=== PATIENT | male | born 1955 | race Caucasian/White ===

== ENCOUNTER 2017-07-11 20:46 | Observation (INO) | payer BC ==
[~2017-07-11] VITALS: Ht 188 cm; Wt 129.5 kg
[~2017-07-11 20:46] MED LIST: CLC150 PO; LCTX PO; SSDCR50 TD
[2017-07-11] MEDS ORDERED: RMR15 PO (21:59)
[2017-07-11] MEDS ORDERED: CARV12.5 PO (21:59)
[2017-07-11] MEDS ORDERED: ATOR10TA88 PO (21:59)
[2017-07-11] MEDS ORDERED: ASPI81TA28 PO (22:00)
[2017-07-11] MEDS ORDERED: ALBUT/IPRATROP 3MG/0.5MG NEB 3 ML VIAL INH STA (22:01)
[2017-07-11] MEDS ORDERED: METHYLPREDNISOLONE 125 MG VIAL IV STA (22:06)
--- NOTE | 2017-07-11 22:16 | DIAGNOSTIC IMAGING REPORT ---
CHEST ONE VIEW PORTABLE HISTORY: EVALUATE RESPIRATORY DISTRESS.DYSPNEA COMPARISON: Chest 05/15/2008. FINDINGS: The lungs are clear. Cardiac silhouette is normal in size. No pleural effusions. No pneumothorax. IMPRESSION: No acute process. Electronically signed by: Jamarcus Hanna M.D. 07/11/2017 10:15 PM Dictated Date/Time: 07/11/2017 10:14 PM
[2017-07-11 22:21] LABS: BASO % 0.3 %; BASO ABS # 0.05 K/uL (0-0.2); COMPLETE YES; EOS % 2.8 %; HEMATOCRIT 45.9 % (42-52); IG% 0.3 %; LYMPH % 18.5 %; LYMPH ABS # 2.89 K/uL (1.2-3.4); MEAN CELL VOLUME 96.8 fL (80-100); MEAN CORPUSCULAR HEMOGLOBIN 32.3 pg (25-34); MEAN CORPUSCULAR HGB CONC 33.3 g/dl (32-36); MEAN PLATELET VOLUME 10.7 fL (7.4-10.4); MONO % 8.9 %; NEUT % 69.2 %; PLATELET COUNT 207 K/uL (130-400); RED BLOOD COUNT 4.74 M/uL (4.7-6.1); WHITE BLOOD COUNT 15.61 K/uL (4.8-10.8)
[2017-07-11 22:25] LABS: POINT OF CARE TROPONIN I 0.14 ng/ml (0-0.045)
[2017-07-11 22:45] LABS: BUN/CREATININE RATIO 13.9 (10-20); CALCIUM 8.7 mg/dl (8.5-10.1); CREATININE 1.53 mg/dl (0.60-1.40)
[2017-07-11 22:49] LABS: ALB/GLOB RATIO 0.9 (0.9-2); CKMB/CK RATIO 1.3 (0-3.0)
[2017-07-11] MEDS ORDERED: ASPIRIN 81 MG CHEW PO STA (22:51)
[2017-07-11 23:28] LABS: URINE APPEARANCE CLEAR (CLEAR); URINE BILIRUBIN NEG (NEG); URINE COLOR YELLOW; URINE NITRITE NEG (NEG); URINE SPECIFIC GRAVITY 1.018 (1.000-1.030); UROBILINOGEN NEG (NEG)
[2017-07-11 23:29] LABS: MANUAL MICROSCOPIC REQUIRED? NO; REVIEW REQ? NO
[2017-07-12] MEDS ORDERED: MAGNESIUM HYDROXIDE SUSP 30 ML UDC PO PRN (00:15)
[2017-07-12] MEDS ORDERED: NITROGLYCERIN 0.4 MG SL PER TAB CHARGE SL PRN (00:15)
[2017-07-12] MEDS ORDERED: ACETAMINOPHEN 325 MG TAB PO PRN (00:15)
[2017-07-12] MEDS ORDERED: LEVALBUTEROL/IPRATROPIUM NEB INH PRN (00:15)
[2017-07-12] MEDS ORDERED: ALUMINUM/MAGNESIUM/SIMETH (MAALOX MAX) 30 ML UDC PO PRN (00:15)
[2017-07-12] MEDS ORDERED: ONDANSETRON INJ 2 MG/ML 2 ML VIAL IV PRN (00:15)
[2017-07-12] MEDS ORDERED: IPRATROPIUM BROMIDE NEB SOLN 0.02% 2.5 ML VIAL INH PRN (00:30)
[2017-07-12] MEDS ORDERED: IV FLUIDS COMPLETED PRN (00:30)
[2017-07-12] MEDS ORDERED: LEVALBUTEROL 0.63MG/3 ML NEB INH PRN (00:30)
--- NOTE | 2017-07-12 00:48 | HISTORY & PHYSICAL EXAMINATION ---
DATE OF ADMISSION: 07/12/2017 CHIEF COMPLAINT: Shortness of breath and anxiety. HISTORY OF PRESENT ILLNESS: This is a 62-year-old male with past medical history significant for generalized anxiety disorder, hyperlipidemia, hypertension, presents with cold-like symptoms and shortness of breath and some chest discomfort. The patient says since last 2 or 3 days, he developed some cold-like symptoms having cough with some mild yellowish phlegm and shortness of breath> when he gets shortness of breath he gets anxious and paranoid. Today he also had chest pain, mild to moderate in severity, no radiation, which is resolved now. Currently resting comfortably, hemodynamically stable.Yesterday night, he also had some headache in the back of his head. At that time he had some sweating on head. Currently, no headaches, no blurred vision, no runny nose, has mild sore throat. No difficulty swallowing. No nausea, no vomiting, no abdominal pain. Normal bowel and bladder movements. No blood in the stools, no blood in the urine. Appetite is okay. Denies any shortness of breath or chest pain on exertion. Denies rash or swelling of legs ALLERGIES: DIPHENHYDRAMINE. PAST MEDICAL HISTORY: As mentioned above. PAST SURGICAL HISTORY: Tonsillectomy, adenoidectomy. MEDICATIONS: The patient is on Lipitor 10 mg p.o. daily, Coreg 12.5 mg p.o. b.i.d. mirtazapine 30 mg p.o. at bedtime. FAMILY HISTORY: Significant for father had diabetes, hypertension and neurological disorder. Paternal grandmother has asthma. SOCIAL HISTORY: . No smoking history. No alcohol history. No drug history. REVIEW OF SYMPTOMS: As per HPI. Rest of review of systems negative. PHYSICAL EXAMINATION: GENERAL: The patient is obese, not in distress. VITAL SIGNS: Temperature 36.4, pulse 73, respiratory rate 23, blood pressure 158/92, oxygen 94% on room air. HEENT: No pallor, no icterus. Pupils equal, round, and reactive to light. NECK: No JVD, no neck masses, no carotid bruits. CARDIOVASCULAR: S1, S2 heard, regular rate and rhythm, no murmur, no gallop. RESPIRATORY SYSTEM: Normal AP diameter. No accessory muscle use. No wheezing, no crackles. ABDOMEN: Soft, bowel sounds present. Nontender. No distention. CENTRAL NERVOUS SYSTEM: Cranial nerves are grossly intact. Nonfocal. EXTREMITIES: Trace pedal edema present. No erythema seen. LABORATORIES: Sodium 137, potassium 4, chloride 105, bicarbonate 25, BUN 21, creatinine 1.5, serum glucose 108, calcium 8.7, total bilirubin 0.5, AST 17, ALT 22, alkaline phosphatase 82, total creatinine kinase 223, point of care troponin 0.1. BNP 62, total protein 8. WBC 15.6, hemoglobin 15.3, hematocrit 45.9, platelets 207. Point of care D-dimer 436. Urinalysis unremarkable. Chest x-ray negative study. EKG: Normal sinus rhythm with a rate of 74. No acute ST changes seen. ASSESSMENT AND PLAN: This is a 62-year-old male who presents with shortness of breath and cold-like symptoms. 1. Shortness of breath and cold-like symptoms with leukocytosis present. Chest x-ray unremarkable. Most likely upper respiratory infection. We will place him on p.o. Levaquin. The patient received steroids and DuoNebs in the ERl. We will place him on Nebs p.r.n. Monitor on tele floor . 2. Troponin, mild elevation( point of care). We will follow Serial troponin, . The patient had an episode of chest pain but currently asymptomatic. We will follow echocardiogram, cardiology consult in a.m. for further recommendations. 3. Hypertension. Continue his Coreg. 4. History of generalized anxiety disorder. Continue Remeron. 5. Hyperlipidemia. Continue Lipitor. Follow the fasting lipid profile. 6. Deep venous thrombosis prophylaxis scds DISPOSITION: 1. Observation on tele floor. 2. Expect to discharge home and follow with family doctor. Level 1 full code. MTDD
[2017-07-12] MEDS ORDERED: SODIUM CHLORIDE 0.9% 1000ML 1,000 ML IV SCH (01:30)
--- NOTE | 2017-07-12 01:45 | EMERGENCY ROOM VISIT NOTE ---
History Report prepared by [facility] Under the Supervision of: Dr. Nicholas Olson M.D. First contact with patient: 21:23 Chief Complaint: RESPIRATORY PROBLEMS Stated Complaint: SOB, NERVOUS History of Present Illness The patient is a 62 year old male who presents to the Emergency Room with complaints of persistent SOB starting a couple weeks ago. The patient has had a cough with some trouble breathing. For the past week, he had had a cold with sore throat. He has been having difficulty sleeping because of his difficulty breathing. He notes that he feels anxious. He has a history of anxiety and depression. He denies any history of COPD, but did have asthma as a child. 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 He lives alone. He denies any history of smoking. Pt denies LOC, headache, fevers, chills, diaphoresis, visual changes, neck pain, chest pain, nausea, vomiting, abdominal pain, back pain, melena, hematochezia, urinary symptoms, numbness, weakness, lymphadenopathy, rash, or other complaints. Source of History: patient Onset: couple weeks ago Position: other (global) Quality: other (SOB) Timing: other (persistent) Associated Symptoms: + sorethroat, + cough Note: Pt reports anxiety. Review of Systems See HPI for pertinent positives and negatives. A total of ten systems were reviewed and were otherwise negative. Past Medical & Surgical Medical Problems: (1) Anxiety (2) Depression (3) Elevated troponin (4) SOB (shortness of breath) Family History No pertinent family history stated. Social History Smoking Status: Never Smoker Marital Status: Housing Status: lives alone Occupation Status: employed Current/Historical Medications Scheduled Aspirin (Aspirin Ec), 81 MG PO DAILY Atorvastatin (Lipitor), 10 MG PO DAILY Carvedilol (Coreg), 12.5 MG PO BID Mirtazapine (Mirtazapine), 30 MG PO HS Allergies Coded Allergies: No Known Allergies (Verified , 07/11/17) Physical Exam Vital Signs Date Time Temp Pulse Resp B/P (MAP) Pulse Ox O2 Delivery O2 Flow Rate FiO2 07/12/17 00:06 81 22 96 07/12/17 00:01 76 23 168/96 94 07/11/17 23:46 72 17 92 07/11/17 23:31 74 16 94 07/11/17 23:30 130/77 07/11/17 23:16 69 13 97 07/11/17 23:01 74 20 94 07/11/17 23:00 156/82 07/11/17 22:31 72 14 96 07/11/17 22:30 157/92 07/11/17 22:16 73 98 07/11/17 22:14 73 23 158/90 94 Room Air 07/11/17 22:12 94 Room Air 07/11/17 22:12 94 Room Air 07/11/17 22:01 76 19 94 07/11/17 22:00 158/90 07/11/17 21:57 75 07/11/17 21:30 155/86 07/11/17 21:30 94 Room Air 07/11/17 21:15 36.4 78 20 176/96 94 Room Air Physical Exam GENERAL: Awake, alert, well-appearing, in no distress. Hoarse voice. HENT: Normocephalic, atraumatic. Mild nasal congestion. Oropharynx unremarkable. EYES: Normal conjunctiva. Sclera non-icteric. NECK: Supple. No nuchal rigidity. FROM. No JVD. RESPIRATORY: Clear to auscultation. CARDIAC: Regular rate, normal rhythm. Extremities warm and well perfused. Pulses equal. ABDOMEN: Soft, non-distended. No tenderness to palpation. No rebound or guarding. No masses. RECTAL: Deferred. MUSCULOSKELETAL: Chest examination reveals no tenderness. The back is symmetrical on inspection without obvious abnormality. There is no CVA tenderness to palpation. No joint edema. LOWER EXTREMITIES: Calves are equal size bilaterally and non-tender. No edema. No discoloration. NEURO: Normal sensorium. No sensory or motor deficits noted. SKIN: No rash or jaundice noted. Medical Decision & Procedures ER Provider Diagnostic Interpretation: Radiology results as stated below per my review and radiologist interpretation: CHEST ONE VIEW PORTABLE HISTORY: EVALUATE RESPIRATORY DISTRESS.DYSPNEA COMPARISON: Chest 05/15/2008. FINDINGS: The lungs are clear. Cardiac silhouette is normal in size. No pleural effusions. No pneumothorax. IMPRESSION: No acute process. Electronically signed by: Jamarcus Hanna M.D. 07/11/2017 10:15 PM Dictated Date/Time: 07/11/2017 10:14 PM Laboratory Results 07/11/17 22:00 Red Blood Count 4.74, Mean Corpuscular Volume 96.8, Mean Corpuscular Hemoglobin 32.3, Mean Corpuscular Hemoglobin Concent 33.3, Mean Platelet Volume 10.7, Neutrophils (%) (Auto) 69.2, Lymphocytes (%) (Auto) 18.5, Monocytes (%) (Auto) 8.9, Eosinophils (%) (Auto) 2.8, Basophils (%) (Auto) 0.3, Neutrophils # (Auto) 10.80, Lymphocytes # (Auto) 2.89, Monocytes # (Auto) 1.39, Eosinophils # (Auto) 0.44, Basophils # (Auto) 0.05 07/11/17 22:00 Test 07/11/17 22:00 07/11/17 22:07 07/11/17 23:00 White Blood Count 15.61 K/uL (4.8-10.8) Red Blood Count 4.74 M/uL (4.7-6.1) Hemoglobin 15.3 g/dL (14.0-18.0) Hematocrit 45.9 % (42-52) Mean Corpuscular Volume 96.8 fL (80-100) Mean Corpuscular Hemoglobin 32.3 pg (25-34) Mean Corpuscular Hemoglobin Concent 33.3 g/dl (32-36) Platelet Count 207 K/uL (130-400) Mean Platelet Volume 10.7 fL (7.4-10.4) Neutrophils (%) (Auto) 69.2 % Lymphocytes (%) (Auto) 18.5 % Monocytes (%) (Auto) 8.9 % Eosinophils (%) (Auto) 2.8 % Basophils (%) (Auto) 0.3 % Neutrophils # (Auto) 10.80 K/uL (1.4-6.5) Lymphocytes # (Auto) 2.89 K/uL (1.2-3.4) Monocytes # (Auto) 1.39 K/uL (0.11-0.59) Eosinophils # (Auto) 0.44 K/uL (0-0.5) Basophils # (Auto) 0.05 K/uL (0-0.2) RDW Standard Deviation 52.5 fL (36.4-46.3) RDW Coefficient of Variation 14.8 % (11.5-14.5) Immature Granulocyte % (Auto) 0.3 % Immature Granulocyte # (Auto) 0.04 K/uL (0.00-0.02) Anion Gap 7.0 mmol/L (3-11) Est Creatinine Clear Calc Drug Dose 74.3 ml/min Estimated GFR () 56.4 Estimated GFR (Non- 48.7 BUN/Creatinine Ratio 13.9 (10-20) Calcium Level 8.7 mg/dl (8.5-10.1) Total Bilirubin 0.5 mg/dl (0.2-1) Aspartate Amino Transf (AST/SGOT) 17 U/L (15-37) Alanine Aminotransferase (ALT/SGPT) 22 U/L (12-78) Alkaline Phosphatase 82 U/L (45-117) Total Creatine Kinase 223 U/L (39-308) Creatine Kinase MB 2.9 ng/ml (0.5-3.6) Creatine Kinase MB Ratio 1.3 (0-3.0) Pro-B-Type Natriuretic Peptide 62 pg/ml (0-900) Total Protein 8.0 gm/dl (6.4-8.2) Albumin 3.9 gm/dl (3.4-5.0) Globulin 4.1 gm/dl (2.5-4.0) Albumin/Globulin Ratio 0.9 (0.9-2) Bedside D-Dimer 436 ng/mlFEU (0-450) Bedside Troponin I 0.140 ng/ml (0-0.045) Urine Color YELLOW Urine Appearance CLEAR (CLEAR) Urine pH 5.0 (4.5-7.5) Urine Specific [place] 1.018 (1.000-1.030) Urine Protein NEG (NEG) Urine Glucose (UA) NEG (NEG) Urine Ketones TRACE (NEG) Urine Occult Blood NEG (NEG) Urine Nitrite NEG (NEG) Urine Bilirubin NEG (NEG) Urine Urobilinogen NEG (NEG) Urine Leukocyte Esterase NEG (NEG) Laboratory results reviewed by me Medications Administered Medications (Trade) Dose Ordered Sig/Darcie Route Start Time Stop Time Status Last Admin Dose Admin Albuterol/ Ipratropium (Duoneb) 3 ml NOW STAT INH 07/11/17 22:01 07/11/17 22:02 DC 07/11/17 22:01 3 ML Methylprednisolone Sodium Succinate (Solu-Medrol IV) 125 mg NOW STAT IV 07/11/17 22:06 07/11/17 22:07 DC 07/11/17 22:11 125 MG Aspirin (Aspirin Chew) 243 mg NOW STAT PO 07/11/17 22:51 07/11/17 22:52 DC 07/11/17 23:00 243 MG ECG Indication: SOB/dyspnea Rate (beats per minute): 74 Rhythm: normal sinus Findings: no acute ischemic change, no ectopy ED Course 2200: Duoneb 3 ml INH. 2205: Solu-Medrol IV 125 mg IV. 2221: The patient was evaluated in room B10. A complete history and physical exam was performed. 2249: Upon reexamination, the patient was doing well. I discussed the test results and treatment plan with him. The patient will be evaluated for further management. 225: Aspirin 243 mg PO. 2342: I discussed the patient's case with [email or web address]. The patient will be evaluated for further treatment and disposition. Medical Decision Triage Nursing notes reviewed. The patient's presentation and history were concerning for respiratory symptoms and chest discomfort Etiologies such as pneumonia, COPD, reactive airway disease, CHF, cardiac ischemia, pulmonary embolism, pneumothorax, musculoskeletal, infections, gastrointestinal, as well as others were entertained. The patient was evaluated. He was given a DuoNeb and Solu-Medrol. Chest x-ray was performed and was unremarkable. CBC revealed a lymphocytosis. Chemistry panel was unremarkable. The patient's cardiac troponin was elevated. D-dimer negative. ECG did not show any ischemia. Given the patient's vague symptoms coupled with an elevated troponin he will need further evaluation and management in the hospital. The patient was given aspirin. Consultation was made with internal medicine. The patient was evaluated for further treatment. Medication Reconcilliation Current Medication List: was personally reviewed by me Blood Pressure Screening Patient's blood pressure: Elevated blood pressure Referred to hospitalist. Consults Time Called: 2331 Consulting Physician: [facility] Returned Call: [phone] Discussed the patient's case. The patient will be evaluated for further treatment and disposition. Impression Primary Impression: Left sided chest pain Additional Impressions: SOB (shortness of breath) Elevated troponin Scribe Attestation The scribe's documentation has been prepared under my direction and personally reviewed by me in its entirety. I confirm that the note above accurately reflects all work, treatment, procedures, and medical decision making performed by me. Departure Information Dispostion Being Evaluated By Hospitalist Referrals Pedro Carey M.D. (PCP) Patient Instructions [facility] Problem Qualifiers
[2017-07-12 01:47] VITALS: BP 185/92; PULSE 77; TEMP 36.5; O2SAT 92; Ht 188 cm; Wt 129.5 kg
[2017-07-12 03:45] VITALS: BP 172/83; PULSE 78; TEMP 36.8; O2SAT 91
[2017-07-12 04:01] VITALS: BP 151/83
[2017-07-12 07:52] VITALS: BP 153/100; PULSE 92; TEMP 36.5; O2SAT 93
[2017-07-12 08:50] LABS: CKMB/CK RATIO 1.3 (0-3.0)
[2017-07-12] MEDS ORDERED: CARVEDILOL 12.5 MG TAB PO SCH (09:00)
[2017-07-12] MEDS ORDERED: ASPIRIN 81 MG ECTAB PO SCH (09:00)
[2017-07-12] MEDS ORDERED: ATORVASTATIN 10 MG TAB PO SCH (09:00)
[2017-07-12] MEDS ORDERED: LEVOFLOXACIN 250 MG TAB PO SCH (11:00)
--- NOTE | 2017-07-12 11:04 | Cardiology Consultation ---
Cardiology Consultation Date of Consultation: Jul 12, 2017 Requesting Physician: Ivania Attending Filter Assembler: Jens (Red Camacho PA-C) History of Present Illness Mr. Gibson is a 62 year old male who is being seen at the request of Dr. Redd. Reasons for consultation include shortness of breath and elevated troponin. Mr. Gibson notes developing cold like symptoms a few days ago. He describes a cough productive of yellow phlegm, head and chest congestion, hoarse voice, and increased dyspnea. He notes that "then the anxiety kicked in and made things worse." He describes feeling "nervous, paranoid," developing nonradiating substernal chest pressure, gasping for air. Symptoms occur at rest, typically in the evenings. Symptoms are aided by "calming down." Symptoms are not aggravated by activity. He notes no exertional chest pain, palpitations, new or worsening dyspnea. No change in exercise tolerance. No orthopnea, PND, or peripheral edema. No lightheadedness, dizziness, near syncope, or syncope. He denies prior cardiac history, specifically denying history of CAD, ND, CHF, arrhythmias, heart murmur, rheumatic fever, or scarlet fever. Blood pressure was elevated on presentation at 176/96. Point of Care Troponin was elevated at 0.140 ng/mL. EKG showed no acute changes. Chest x-ray was clear. D-dimer was negative. BNP normal at 62 pg/mL. CBC revealed mild leukocytosis. He was given a DuoNeb treatment and Solu-Medrol in the ER with some improvement. Oral Levaquin initiated on admission. ASA administered as well. (Red Camacho PA-C) Past Medical/Surgical History Problem List: Past Medical and Surgical History: Hypertension Chart history of what appears to be stage III CKD with intermittent hyperkalemia observed as an outpatient. Dyslipidemia Generalized anxiety disorder Left lower extremity cellulitis in 2007 requiring ? skin debridement. T/A as a child Hernia repair (Red Camacho PA-C) Family History Family History: Mother is alive and well, soon to be 81. She was present for my evaluation and denies prior cardiac history. Father with a CVA at 81 and had a history of diabetes mellitus. He is an only child. (Janice,Red, PA-C) Social History Social History: Nonsmoker. No smokeless tobacco use. No significant alcohol. No illegal drug use. , passed on March 27, 2017 with breast cancer. Lives alone. Daughter in [place]. Son in [place], [place]. Employment: [employer] in [place], [place] x 39 years. (Red Camacho PA-C) Review Of Systems General: No fever or chills. Head: Posterior headache last night. No recent head trauma. Cardiovascular: See above. Pulmonary: Notes never being able to pass the breathing tests at [facility]. ? Childhood history of asthma. + Cough. + Wheeze. No pleuritic pain. No hemoptysis. Gastrointestinal: No nausea, vomiting, or diarrhea. No melena or hematochezia. Skin: No rash. Musculoskeletal: No recent injury. Neurological: Denies history of TIA, CVA, or seizures Complete review of systems is as stated above, negative, or noncontributory. (Red Camacho PA-C) Allergies Coded Allergies: No Known Allergies (Verified , 07/11/17) Medications Reported Home Medications Medications Dose Route/Sig Max Daily Dose Days Date Category Aspirin Ec (Aspirin) 81 Mg Tab 81 Mg PO DAILY 07/11/17 Reported Lipitor (Atorvastatin Calcium) 10 Mg Tab 10 Mg PO DAILY 07/11/17 Reported Coreg (Carvedilol) 12.5 Mg Tab 12.5 Mg PO BID 07/11/17 Reported Mirtazapine 15 Mg Tab 30 Mg PO HS 07/11/17 Reported (Red Camacho PA-C) Physical Exam Vital Signs (Last 8hrs): Last 8 Hrs Date Time Temp Pulse Resp B/P (MAP) Pulse Ox O2 Delivery O2 Flow Rate FiO2 07/12/17 08:00 Room Air 07/12/17 07:52 36.5 92 18 153/100 (117) 93 Room Air 07/12/17 04:01 Room Air 07/12/17 04:01 151/83 (105) 07/12/17 03:45 36.8 78 19 172/83 (112) 91 Room Air General Appearance: Alert and Oriented x3. NAD. Elevated BMI Head: Normocephalic Atraumatic. Eyes: PER, EOMI, conjunctiva and sclera clear Neck: Supple. Left carotid bruit. No JVD. No HJD. Respiratory: Diminished and decreased but clear to auscultation. Cardiovascular: Regular. I could not appreciate a murmur. No rub. No gallop. PMI is non displaced. Abdomen: Obese. Normal bowel sounds, soft nontender. No abdominal bruits. Extremities: No edema, no clubbing or cyanosis. distal pulses 2/4 bilaterally. Neuro: No focal deficits. Psychiatric: Flat affect. (Red Camacho PA-C) Data Last 24 Hours Test 07/11/17 22:00 07/11/17 22:07 07/11/17 23:00 07/12/17 00:47 White Blood Count 15.61 K/uL Red Blood Count 4.74 M/uL Hemoglobin 15.3 g/dL Hematocrit 45.9 % Mean Corpuscular Volume 96.8 fL Mean Corpuscular Hemoglobin 32.3 pg Mean Corpuscular Hemoglobin Concent 33.3 g/dl Platelet Count 207 K/uL Mean Platelet Volume 10.7 fL Neutrophils (%) (Auto) 69.2 % Lymphocytes (%) (Auto) 18.5 % Monocytes (%) (Auto) 8.9 % Eosinophils (%) (Auto) 2.8 % Basophils (%) (Auto) 0.3 % Neutrophils # (Auto) 10.80 K/uL Lymphocytes # (Auto) 2.89 K/uL Monocytes # (Auto) 1.39 K/uL Eosinophils # (Auto) 0.44 K/uL Basophils # (Auto) 0.05 K/uL RDW Standard Deviation 52.5 fL RDW Coefficient of Variation 14.8 % Immature Granulocyte % (Auto) 0.3 % Immature Granulocyte # (Auto) 0.04 K/uL Sodium Level 137 mmol/L Potassium Level 4.0 mmol/L Chloride Level 105 mmol/L Carbon Dioxide Level 25 mmol/L Anion Gap 7.0 mmol/L Blood Urea Nitrogen 21 mg/dl Creatinine 1.53 mg/dl Est Creatinine Clear Calc Drug Dose 74.3 ml/min Estimated GFR () 56.4 Estimated GFR (Non- 48.7 BUN/Creatinine Ratio 13.9 Random Glucose 108 mg/dl Calcium Level 8.7 mg/dl Total Bilirubin 0.5 mg/dl Aspartate Amino Transf (AST/SGOT) 17 U/L Alanine Aminotransferase (ALT/SGPT) 22 U/L Alkaline Phosphatase 82 U/L Total Creatine Kinase 223 U/L Creatine Kinase MB 2.9 ng/ml Creatine Kinase MB Ratio 1.3 Pro-B-Type Natriuretic Peptide 62 pg/ml Total Protein 8.0 gm/dl Albumin 3.9 gm/dl Globulin 4.1 gm/dl Albumin/Globulin Ratio 0.9 Bedside D-Dimer 436 ng/mlFEU Bedside Troponin I 0.140 ng/ml Urine Color YELLOW Urine Appearance CLEAR Urine pH 5.0 Urine Specific [place] 1.018 Urine Protein NEG Urine Glucose (UA) NEG Urine Ketones TRACE Urine Occult Blood NEG Urine Nitrite NEG Urine Bilirubin NEG Urine Urobilinogen NEG Urine Leukocyte Esterase NEG Troponin I < 0.015 ng/ml Test 07/12/17 08:11 Total Creatine Kinase 173 U/L Creatine Kinase MB 2.2 ng/ml Creatine Kinase MB Ratio 1.3 Troponin I < 0.015 ng/ml Triglycerides Level 53 mg/dl Cholesterol Level 151 mg/dl HDL Cholesterol 50 mg/dl LDL Cholesterol, Calculated 90 mg/dl VLDL Cholesterol, Calculated 11 mg/dl Cholesterol/HDL Ratio 3.0 Imaging: See above. EKG dated and timed 11-JUL-2017 @ 21:25:10: Normal sinus rhythm at 74 bpm. Telemetry reviewed: Currently sinus at 74 bpm. Intermittent sinus tachycardia. No significant atrial or ventricular arrhythmias. TTE: completed, pending interpretation. (Red Camacho PA-C) Assessment & Plan Presentation with URI symptoms, increased shortness of breath and atypical chest pain. Elevated point of care troponin Troponin I negative x 2 EKG without acute changes. TTE pending interpretation Refer for exercise stress echocardiography if TTE OK Hypertension Outpatient labs appear to demonstrate stage III CKD along with intermittent hyperkalemia. Avoid further titration of Carvedilol at this point given concern for underlying pulmonary disease (see below). Add amlodipine 5 mg/day Left carotid bruit Check a bilateral carotid duplex ? Underlying pulmonary disease Recommend full PFT's as an outpatient Dyslipidemia Continue statin (Red Camacho PA-C) CARDIOLOGY ATTENDING ADDENDUM: The patient was seen and personally examined. Agree with Red Camacho PA-C's findings and plans as documented above. Pt. stress test was negative and he can be discharge to outpatient follow-up. (Cesar Colindres, DO)
[2017-07-12 11:14] VITALS: BP 162/81; PULSE 68; TEMP 36.5; O2SAT 93
[2017-07-12] MEDS ORDERED: AMLODIPINE BESYLATE 5 MG TAB PO ONE (11:15)
--- NOTE | 2017-07-12 13:35 | ECHOCARDIOGRAM REPORT ---
*NOTICE TO RECEIVING [employer] This information is strictly Confidential and protected under [place] law. [place] law prohibits you from making any further disclosure of this information unless further disclosure is expressly permitted by the written consent of the person to whom it pertains or is authorized by law. A general authorization for the release of medical or other information is not sufficient for this purpose. Hospital accepts no responsibility if the information is made available to any other person, INCLUDING THE PATIENT. Interpretation Summary * Name: DOUG GRANADOS Study Date: 07/12/2017 06:20 AM BP: 151/83 mmHg * Patient Location: C.2T\S\S236\S\1 HR: 82 * : 1955 (M/d/yyyy) Gender: Male Height: 74 in * Age: 62 yrs Ethnicity: [place] Weight: 291 lb * Ordering Physician: Burak Redd * Referring Physician: Self, Referred * Performed By: Hansa Melissa [facility] * * Reason For Study: CHEST PAIN * BSA: 2.5 m2 Procedure Details * A complete two-dimensional transthoracic echocardiogram was performed (2D, M-mode, Doppler and color flow Doppler). * The study was technically difficult. * A contrast injection of Definity was performed to improve assessment of LV function. * Contrast was injected into an intravenous site in the left arm. * One vial of Definity ultrasound contrast was diluted in normal saline to a total volume of 10 ml. A total of '2' ml of solution was administered during imaging. * Lot # [id number] of Definity utilized for procedure. * Expiration date JUL 12. * The attending nurse who injected the contrast agent was JOAN AVILA RN. Left Ventricle * The left ventricle is normal in size. * There is normal left ventricular wall thickness. * Left ventricular systolic function is normal. * Ejection Fraction = 55-60%. * The left ventricular wall motion is normal. Right Ventricle * The right ventricle is normal size. * The right ventricular systolic function is normal. Atria * The left atrial size is normal. * Right atrial size is normal. * The interatrial septum is intact with no evidence for an atrial septal defect. Mitral Valve * The mitral valve anatomy is normal. * Significant mitral regurgitation is absent. Tricuspid Valve * The tricuspid valve anatomy is normal. * Significant tricuspid regurgitation is absent. Aortic Valve * The aortic valve is tricuspid. The leaflet thickness if normal. There is no aortic stenosis, and no significant insufficiency. * No hemodynamically significant valvular aortic stenosis. * There is no significant aortic regurgitation. Pulmonic Valve * The pulmonic valve is not well visualized. Great Vessels * The aortic root and proximal ascending aorta are normal sized. Pericardium/Pleural * There is no pericardial effusion. MMode 2D Measurements and Calculations IVSd 1.6 cm IVSs 1.8 cm LVIDd 4.3 cm LVIDs 2.9 cm LVPWd 1.4 cm LVPWs 1.4 cm IVS/LVPW 1.2 FS 32.7 % EDV(Teich) 82.6 ml ESV(Teich) 31.8 ml EF(Teich) 61.5 % EDV(cubed) 78.9 ml ESV(cubed) 24.0 ml EF(cubed) 69.6 % % IVS thick 8.3 % % LVPW thick -2.01 % LV mass(C)d 261.6 grams LV mass(C)dI 102.7 grams/m\S\2 LV mass(C)s 162.6 grams LV mass(C)sI 63.8 grams/m\S\2 SV(Teich) 50.8 ml SI(Teich) 19.9 ml/m\S\2 SV(cubed) 54.9 ml SI(cubed) 21.5 ml/m\S\2 Ao root diam 3.1 cm Ao root area 7.3 cm\S\2 LA dimension 2.9 cm LA/Ao 0.94 LVOT diam 2.0 cm LVOT area 3.0 cm\S\2 LVAd ap4 26.2 cm\S\2 LVLd ap4 7.4 cm EDV(MOD-sp4) 75.2 ml EDV(sp4-el) 78.6 ml LVAs ap4 15.7 cm\S\2 LVLs ap4 6.7 cm ESV(MOD-sp4) 30.7 ml ESV(sp4-el) 31.4 ml EF(MOD-sp4) 59.2 % EF(sp4-el) 60.1 % LVAd ap2 24.1 cm\S\2 LVLd ap2 7.6 cm EDV(MOD-sp2) 61.3 ml EDV(sp2-el) 65.1 ml LVAs ap2 14.2 cm\S\2 LVLs ap2 6.2 cm ESV(MOD-sp2) 26.3 ml ESV(sp2-el) 27.5 ml EF(MOD-sp2) 57.1 % EF(sp2-el) 57.8 % LVLd %diff 2.6 % EDV(MOD-bp) 69.5 ml LVLs %diff -6.86 % ESV(MOD-bp) 28.8 ml EF(MOD-bp) 58.6 % SV(MOD-sp4) 44.6 ml SI(MOD-sp4) 17.5 ml/m\S\2 SV(MOD-sp2) 35.0 ml SI(MOD-sp2) 13.7 ml/m\S\2 SV(MOD-bp) 40.7 ml SI(MOD-bp) 16.0 ml/m\S\2 SV(sp4-el) 47.3 ml SI(sp4-el) 18.5 ml/m\S\2 SV(sp2-el) 37.6 ml SI(sp2-el) 14.7 ml/m\S\2 Doppler Measurements and Calculations MV E max magan 65.0 cm/sec MV A max maagn 89.2 cm/sec MV E/A 0.73 MV P1/2t max magan 69.9 cm/sec MV P1/2t 77.9 msec MVA(P1/2t) 2.8 cm\S\2 MV dec slope 262.9 cm/sec\S\2 MV dec time 0.28 sec Ao V2 max 140.6 cm/sec Ao max PG 7.9 mmHg Ao max PG (full) 2.1 mmHg KALEIGH(V,A) 2.6 cm\S\2 KALEIGH(V,D) 2.6 cm\S\2 LV V1 max PG 5.8 mmHg LV V1 max 120.4 cm/sec PA V2 max 92.3 cm/sec PA max PG 3.4 mmHg
--- NOTE | 2017-07-12 13:36 | EXERCISE STRESS ECHO ---
*NOTICE TO RECEIVING [employer] This information is strictly Confidential and protected under [place] law. [place] law prohibits you from making any further disclosure of this information unless further disclosure is expressly permitted by the written consent of the person to whom it pertains or is authorized by law. A general authorization for the release of medical or other information is not sufficient for this purpose. Hospital accepts no responsibility if the information is made available to any other person, INCLUDING THE PATIENT. Interpretation Summary * Name: DOUG GRANADOS Study Date: 07/12/2017 11:13 AM BP: 155/88 mmHg * Patient Location: .2T\S\S236\S\1 HR: 93 * : 1955 (M/d/yyyy) Gender: Male Height: 74 in * Age: 62 yrs Ethnicity: [place] Weight: 285 lb * Ordering Physician: Red Camacho * Referring Physician: Self, Referred * Performed By: Peace Hairston RDCS * * Reason For Study: Chest pain * BSA: 2.5 m2 * STRESS STUDY: Normal exercise stress echocardiogram. No echocardiographic or ECG evidence of myocardial ischemia having achieved heart rate adequate for diagnostic purposes. Procedure Details * ECHOEX, CPT #69290 * A contrast injection of Definity was performed to improve assessment of LV function. * Contrast was injected into an intravenous site in the left arm. * One vial of Definity ultrasound contrast was diluted in normal saline to a total volume of 10 ml. A total of '4' ml of solution was administered during imaging. * Lot # [id number] of Definity utilized for procedure. * Expiration date JUL 12. * The attending nurse who injected the contrast agent was Kaylah Chavez RN. Left Ventricle * Ejection Fraction = 65-70%. Stress Parameters * Sinus with an incomplete RBBB * The stress ECG response was normal * The stress portion of this study was personally supervised by the undersigned interpreting physician. * Rest heart rate was '93' BPM. * Rest blood pressure was '155/88' * Maximum heart rate achieved was 150 bpm. * Maximum heart rate was 93 % of maximum age-predicted heart rate. * Maximum blood pressure was '181/80' * Total exercise time was '6:12' * Maximum exercise MET level achieved was '7.20' METS * Maximum treadmill speed was '3.40' miles per hour. * Maximum treadmill elevation was '14.00'% grade. * Exercise was terminated due to 'patient request' MMode 2D Measurements and Calculations LVAd ap4 23.1 cm\S\2 LVLd ap4 6.9 cm EDV(MOD-sp4) 63.0 ml EDV(sp4-el) 65.6 ml LVAs ap4 11.7 cm\S\2 LVLs ap4 5.2 cm ESV(MOD-sp4) 21.7 ml ESV(sp4-el) 22.1 ml EF(MOD-sp4) 65.6 % EF(sp4-el) 66.3 % LVAd ap2 23.3 cm\S\2 LVLd ap2 6.8 cm EDV(MOD-sp2) 64.4 ml EDV(sp2-el) 67.5 ml LVAs ap2 11.6 cm\S\2 LVLs ap2 5.5 cm ESV(MOD-sp2) 20.5 ml ESV(sp2-el) 20.7 ml EF(MOD-sp2) 68.2 % EF(sp2-el) 69.3 % LVLd %diff -0.48 % EDV(MOD-bp) 64.0 ml LVLs %diff 5.3 % ESV(MOD-bp) 21.6 ml EF(MOD-bp) 66.2 % SV(MOD-sp4) 41.3 ml SI(MOD-sp4) 16.3 ml/m\S\2 SV(MOD-sp2) 43.9 ml SI(MOD-sp2) 17.4 ml/m\S\2 SV(MOD-bp) 42.3 ml SI(MOD-bp) 16.8 ml/m\S\2 SV(sp4-el) 43.5 ml SI(sp4-el) 17.2 ml/m\S\2 SV(sp2-el) 46.8 ml SI(sp2-el) 18.5 ml/m\S\2
--- NOTE | 2017-07-12 14:35 | DIAGNOSTIC IMAGING REPORT ---
ULTRASOUND OF THE CAROTID ARTERIES CLINICAL HISTORY: carotid bruit COMPARISON STUDY: None. TECHNIQUE: Real-time, grayscale, and color Doppler sonography of the carotid arteries was performed. Imaging reviewed in the transverse and longitudinal planes. NASCET criteria was utilized for stenosis calcification. FINDINGS: There is mild atherosclerotic plaque present . The peak systolic velocity within the right internal carotid artery is 152 cm/sec. The systolic velocity ratio of right internal to common carotid artery is 1.5. The peak systolic velocity within the left internal carotid artery is 85 cm/sec. The systolic velocity ratio left internal to common carotid artery is 0.9. Antegrade flow is seen in the vertebral arteries. The external carotid arteries are patent. Blood pressure in the right arm measured 166 mm/Hg. Blood pressure in the left arm measured 167 mm/Hg. IMPRESSION: Atheromatous changes. Mild elevation of the peak systolic velocity of the right internal carotid artery with a normal ICA/CCA peak systolic ratio. The findings are indicative of a less than 50% stenosis. Electronically signed by: Sreekanth Hodgson M.D. 07/12/2017 2:33 PM Dictated Date/Time: 07/12/2017 2:31 PM
--- NOTE | 2017-07-12 15:19 | Progress Note ---
Internal Med Progress Note Date of Service: Jul 12, 2017. Provider Documentation: SUBJECTIVE: patient seen before and after stress test. No complaints of shortness of breath or chest discomfort since being in hospital OBJECTIVE: GENERAL: The patient is obese, not in distress. HEENT: No pallor, no icterus. Pupils equal, round, and reactive to light. NECK: No JVD, no neck masses CARDIOVASCULAR: S1, S2 heard, regular rate and rhythm, no murmur, no gallop. RESPIRATORY SYSTEM: Normal AP diameter. No accessory muscle use. No wheezing, no crackles. ABDOMEN: Soft, bowel sounds present. Nontender. No distention. CENTRAL NERVOUS SYSTEM: Cranial nerves are grossly intact. Nonfocal. EXTREMITIES: Trace pedal edema present. No erythema seen. ASSESSMENT & PLAN: 62 year old M with history of anxiety who presented to the hospital for chest congestion/pain Point of Care Troponin 0.140 elevated however 2 subsequent troponin I were negative WBC 15,000 and patient initially received oral Levofloxacin for possible pulmonary or airway disease but normal chest X ray: "The lungs are clear. Cardiac silhouette is normal in size. No pleural effusions. No pneumothorax." Patient afebrile. 07/12/17 A complete two-dimensional transthoracic echocardiogram was performed (2D, M- mode, Doppler and color flow Doppler) with Definity ultrasound contrast Left Ventricle * The left ventricle is normal in size. * There is normal left ventricular wall thickness. * Left ventricular systolic function is normal. * Ejection Fraction = 55-60%. * The left ventricular wall motion is normal. Right Ventricle * The right ventricle is normal size. * The right ventricular systolic function is normal. Atria * The left atrial size is normal. * Right atrial size is normal. * The interatrial septum is intact with no evidence for an atrial septal defect. Mitral Valve * The mitral valve anatomy is normal. * Significant mitral regurgitation is absent. Tricuspid Valve * The tricuspid valve anatomy is normal. * Significant tricuspid regurgitation is absent. Aortic Valve * The aortic valve is tricuspid. The leaflet thickness if normal. There is no aortic stenosis, and no significant insufficiency. * No hemodynamically significant valvular aortic stenosis. * There is no significant aortic regurgitation. Pulmonic Valve * The pulmonic valve is not well visualized. Great Vessels * The aortic root and proximal ascending aorta are normal sized. Pericardium/Pleural * There is no pericardial effusion. 07/12/17 STRESS STUDY: Normal exercise stress echocardiogram. No echocardiographic or ECG evidence of myocardial ischemia having achieved heart rate adequate for diagnostic purposes. Carotid Ultrasound 07/12/17 IMPRESSION: Atheromatous changes. Mild elevation of the peak systolic velocity of the right internal carotid artery with a normal ICA/CCA peak systolic ratio. The findings are indicative of a less than 50% stenosis. Diagnosis: Atypical Chest pain (Cardiac workup did not find evidence to support coronary artery disease myocardial ischemia), Hypertension (continue Carvedilol BID and add amlodipine 5 mg daily), Anxiety, Leukocytosis without evidence of infection DISPOSITION discharge home with follow up to his primary care doctor. Dr. Valencia. The [facility] appointment line [phone] to help make the appointment. Patient is to receive appointment date from 's office or patient can call [phone] Patient may benefit from pulmonary function testing as outpatient as per cardiology evaluation when inpatient. This can be arranged by the primary care doctor. Vital Signs: Date Time Temp Pulse Resp B/P (MAP) Pulse Ox O2 Delivery O2 Flow Rate FiO2 07/12/17 12:00 Room Air 07/12/17 11:14 36.5 68 18 162/81 (108) 93 Room Air 07/12/17 08:00 Room Air 07/12/17 07:52 36.5 92 18 153/100 (117) 93 Room Air 07/12/17 04:01 Room Air 07/12/17 04:01 151/83 (105) 07/12/17 03:45 36.8 78 19 172/83 (112) 91 Room Air 07/12/17 01:47 36.5 77 20 185/92 92 Room Air 07/12/17 01:00 142/81 07/12/17 00:51 74 92 07/12/17 00:36 77 14 93 07/12/17 00:32 158/89 07/12/17 00:06 81 22 96 07/12/17 00:01 76 23 168/96 94 07/11/17 23:46 72 17 92 07/11/17 23:31 74 16 94 07/11/17 23:30 130/77 07/11/17 23:16 69 13 97 07/11/17 23:01 74 20 94 07/11/17 23:00 156/82 07/11/17 22:31 72 14 96 07/11/17 22:30 157/92 07/11/17 22:16 73 98 07/11/17 22:14 73 23 158/90 94 Room Air 07/11/17 22:12 94 Room Air 07/11/17 22:12 94 Room Air 07/11/17 22:01 76 19 94 07/11/17 22:00 158/90 07/11/17 21:57 75 07/11/17 21:30 155/86 07/11/17 21:30 94 Room Air 07/11/17 21:15 36.4 78 20 176/96 94 Room Air Lab Results: Results Past 24 Hours Test 07/11/17 22:00 07/11/17 22:07 07/11/17 23:00 07/12/17 00:47 Range/Units White Blood Count 15.61 4.8-10.8 K/uL Red Blood Count 4.74 4.7-6.1 M/uL Hemoglobin 15.3 14.0-18.0 g/dL Hematocrit 45.9 42-52 % Mean Corpuscular Volume 96.8 80-100 fL Mean Corpuscular Hemoglobin 32.3 25-34 pg Mean Corpuscular Hemoglobin Concent 33.3 32-36 g/dl Platelet Count 207 130-400 K/uL Mean Platelet Volume 10.7 7.4-10.4 fL Neutrophils (%) (Auto) 69.2 % Lymphocytes (%) (Auto) 18.5 % Monocytes (%) (Auto) 8.9 % Eosinophils (%) (Auto) 2.8 % Basophils (%) (Auto) 0.3 % Neutrophils # (Auto) 10.80 1.4-6.5 K/uL Lymphocytes # (Auto) 2.89 1.2-3.4 K/uL Monocytes # (Auto) 1.39 0.11-0.59 K/uL Eosinophils # (Auto) 0.44 0-0.5 K/uL Basophils # (Auto) 0.05 0-0.2 K/uL RDW Standard Deviation 52.5 36.4-46.3 fL RDW Coefficient of Variation 14.8 11.5-14.5 % Immature Granulocyte % (Auto) 0.3 % Immature Granulocyte # (Auto) 0.04 0.00-0.02 K/uL Sodium Level 137 136-145 mmol/L Potassium Level 4.0 3.5-5.1 mmol/L Chloride Level 105 98-107 mmol/L Carbon Dioxide Level 25 21-32 mmol/L Anion Gap 7.0 3-11 mmol/L Blood Urea Nitrogen 21 7-18 mg/dl Creatinine 1.53 0.60-1.40 mg/dl Est Creatinine Clear Calc Drug Dose 74.3 ml/min Estimated GFR () 56.4 Estimated GFR (Non- 48.7 BUN/Creatinine Ratio 13.9 10-20 Random Glucose 108 70-99 mg/dl Calcium Level 8.7 8.5-10.1 mg/dl Total Bilirubin 0.5 0.2-1 mg/dl Aspartate Amino Transf (AST/SGOT) 17 15-37 U/L Alanine Aminotransferase (ALT/SGPT) 22 12-78 U/L Alkaline Phosphatase 82 45-117 U/L Total Creatine Kinase 223 39-308 U/L Creatine Kinase MB 2.9 0.5-3.6 ng/ml Creatine Kinase MB Ratio 1.3 0-3.0 Pro-B-Type Natriuretic Peptide 62 0-900 pg/ml Total Protein 8.0 6.4-8.2 gm/dl Albumin 3.9 3.4-5.0 gm/dl Globulin 4.1 2.5-4.0 gm/dl Albumin/Globulin Ratio 0.9 0.9-2 Bedside D-Dimer 436 0-450 ng/mlFEU Bedside Troponin I 0.140 0-0.045 ng/ml Urine Color YELLOW Urine Appearance CLEAR CLEAR Urine pH 5.0 4.5-7.5 Urine Specific Egan 1.018 1.000-1.030 Urine Protein NEG NEG Urine Glucose (UA) NEG NEG Urine Ketones TRACE NEG Urine Occult Blood NEG NEG Urine Nitrite NEG NEG Urine Bilirubin NEG NEG Urine Urobilinogen NEG NEG Urine Leukocyte Esterase NEG NEG Troponin I < 0.015 0-0.045 ng/ml Test 07/12/17 08:11 Range/Units Total Creatine Kinase 173 39-308 U/L Creatine Kinase MB 2.2 0.5-3.6 ng/ml Creatine Kinase MB Ratio 1.3 0-3.0 Troponin I < 0.015 0-0.045 ng/ml Triglycerides Level 53 0-150 mg/dl Cholesterol Level 151 0-200 mg/dl HDL Cholesterol 50 mg/dl LDL Cholesterol, Calculated 90 mg/dl VLDL Cholesterol, Calculated 11 mg/dl Cholesterol/HDL Ratio 3.0
[2017-07-12] MEDS ORDERED: NRV5 PO (15:25)
--- NOTE | 2017-07-12 15:28 | Discharge Instructions ---
Discharge Instructions Date of Service Jul 12, 2017. Admission Reason for Admission: Elevated Troponin, Sob Discharge Discharge Diagnosis / Problem: Atypical Chest pain, Hypertension, Anxiety, Leukocytosis Discharge Goals Goal(s): Decrease discomfort Activity Recommendations Activity Limitations: resume your previous activity . Instructions / Follow-Up Instructions / Follow-Up DISPOSITION discharge home with follow up to his primary care doctor. Dr. Valencia. The [facility] appointment line [phone] to help make the appointment. Patient is to receive appointment date from 's office or patient can call Patient may benefit from pulmonary function testing as outpatient as per cardiology evaluation when inpatient. This can be arranged by the primary care doctor Current Hospital Diet Patient's current hospital diet: AHA Diet (Heart Healthy) Discharge Diet Recommended Diet: AHA Diet (Heart Healthy) Pending Studies Studies pending at discharge: no Laboratory Results 07/11/17 22:00 Red Blood Count 4.74, Mean Corpuscular Volume 96.8, Mean Corpuscular Hemoglobin 32.3, Mean Corpuscular Hemoglobin Concent 33.3, Mean Platelet Volume 10.7, Neutrophils (%) (Auto) 69.2, Lymphocytes (%) (Auto) 18.5, Monocytes (%) (Auto) 8.9, Eosinophils (%) (Auto) 2.8, Basophils (%) (Auto) 0.3, Neutrophils # (Auto) 10.80, Lymphocytes # (Auto) 2.89, Monocytes # (Auto) 1.39, Eosinophils # (Auto) 0.44, Basophils # (Auto) 0.05 07/11/17 22:00 Test 07/11/17 22:00 07/11/17 22:07 07/11/17 23:00 07/12/17 08:11 White Blood Count 15.61 K/uL (4.8-10.8) Red Blood Count 4.74 M/uL (4.7-6.1) Hemoglobin 15.3 g/dL (14.0-18.0) Hematocrit 45.9 % (42-52) Mean Corpuscular Volume 96.8 fL (80-100) Mean Corpuscular Hemoglobin 32.3 pg (25-34) Mean Corpuscular Hemoglobin Concent 33.3 g/dl (32-36) Platelet Count 207 K/uL (130-400) Mean Platelet Volume 10.7 fL (7.4-10.4) Neutrophils (%) (Auto) 69.2 % Lymphocytes (%) (Auto) 18.5 % Monocytes (%) (Auto) 8.9 % Eosinophils (%) (Auto) 2.8 % Basophils (%) (Auto) 0.3 % Neutrophils # (Auto) 10.80 K/uL (1.4-6.5) Lymphocytes # (Auto) 2.89 K/uL (1.2-3.4) Monocytes # (Auto) 1.39 K/uL (0.11-0.59) Eosinophils # (Auto) 0.44 K/uL (0-0.5) Basophils # (Auto) 0.05 K/uL (0-0.2) RDW Standard Deviation 52.5 fL (36.4-46.3) RDW Coefficient of Variation 14.8 % (11.5-14.5) Immature Granulocyte % (Auto) 0.3 % Immature Granulocyte # (Auto) 0.04 K/uL (0.00-0.02) Anion Gap 7.0 mmol/L (3-11) Est Creatinine Clear Calc Drug Dose 74.3 ml/min Estimated GFR () 56.4 Estimated GFR (Non- 48.7 BUN/Creatinine Ratio 13.9 (10-20) Calcium Level 8.7 mg/dl (8.5-10.1) Total Bilirubin 0.5 mg/dl (0.2-1) Aspartate Amino Transf (AST/SGOT) 17 U/L (15-37) Alanine Aminotransferase (ALT/SGPT) 22 U/L (12-78) Alkaline Phosphatase 82 U/L (45-117) Pro-B-Type Natriuretic Peptide 62 pg/ml (0-900) Total Protein 8.0 gm/dl (6.4-8.2) Albumin 3.9 gm/dl (3.4-5.0) Globulin 4.1 gm/dl (2.5-4.0) Albumin/Globulin Ratio 0.9 (0.9-2) Bedside D-Dimer 436 ng/mlFEU (0-450) Bedside Troponin I 0.140 ng/ml (0-0.045) Urine Color YELLOW Urine Appearance CLEAR (CLEAR) Urine pH 5.0 (4.5-7.5) Urine Specific [place] 1.018 (1.000-1.030) Urine Protein NEG (NEG) Urine Glucose (UA) NEG (NEG) Urine Ketones TRACE (NEG) Urine Occult Blood NEG (NEG) Urine Nitrite NEG (NEG) Urine Bilirubin NEG (NEG) Urine Urobilinogen NEG (NEG) Urine Leukocyte Esterase NEG (NEG) Total Creatine Kinase 173 U/L (39-308) Creatine Kinase MB 2.2 ng/ml (0.5-3.6) Creatine Kinase MB Ratio 1.3 (0-3.0) Troponin I < 0.015 ng/ml (0-0.045) Triglycerides Level 53 mg/dl (0-150) Cholesterol Level 151 mg/dl (0-200) HDL Cholesterol 50 mg/dl LDL Cholesterol, Calculated 90 mg/dl VLDL Cholesterol, Calculated 11 mg/dl Cholesterol/HDL Ratio 3.0 Lipid Panel Test 07/12/17 08:11 Range/Units Triglycerides Level 53 0-150 mg/dl Cholesterol Level 151 0-200 mg/dl HDL Cholesterol 50 mg/dl Cholesterol/HDL Ratio 3.0 LDL Cholesterol, Calculated 90 mg/dl Medical Emergencies . Who to Call and When: Medical Emergencies: If at any time you feel your situation is an emergency, please call 911 immediately. . Non-Emergent Contact Non-Emergency issues call your: Primary Care Provider Call Non-Emergent contact if: you have any medication questions . . "Provider Documentation" section prepared by Usman Ann. . VTE Core Measure Inpt VTE Proph given/why not?: SCD's
--- NOTE | 2017-07-12 15:29 | Discharge Summary ---
Discharge Summary Date of Service Jul 12, 2017. Discharge Summary Admission Date: Jul 12, 2017 at 00:08 Discharge Date: Jul 12, 2017 Discharge Disposition: Home Principal Diagnosis: Atypical Chest pain (Cardiac workup did not find evidence to support coronary artery disease myocardial ischemia), Hypertension (continue Carvedilol BID and add amlodipine 5 mg daily), Anxiety, Leukocytosis without evidence of infection Consultations: cardiology Medication Reconciliation New Medications: Amlodipine Besylate (Amlodipine Besylate) 5 Mg Tab 5 MG PO QAM for 30 Days, #30 TAB 1 Refill Continued Medications: Aspirin (Aspirin Ec) 81 Mg Tab 81 MG PO DAILY Atorvastatin (Lipitor) 10 Mg Tab 10 MG PO DAILY, TAB Carvedilol (Coreg) 12.5 Mg Tab 12.5 MG PO BID, TAB Mirtazapine (Mirtazapine) 15 Mg Tab 30 MG PO HS Admission Information HPI (per Admitting provider): CHIEF COMPLAINT: Shortness of breath and anxiety. HISTORY OF PRESENT ILLNESS: This is a 62-year-old male with past medical history significant for generalized anxiety disorder, hyperlipidemia, hypertension, presents with cold-like symptoms and shortness of breath and some chest discomfort. The patient says since last 2 or 3 days, he developed some cold-like symptoms having cough with some mild yellowish phlegm and shortness of breath> when he gets shortness of breath he gets anxious and paranoid. Today he also had chest pain, mild to moderate in severity, no radiation, which is resolved now. Currently resting comfortably, hemodynamically stable.Yesterday night, he also had some headache in the back of his head. At that time he had some sweating on head. Currently, no headaches, no blurred vision, no runny nose, has mild sore throat. No difficulty swallowing. No nausea, no vomiting, no abdominal pain. Normal bowel and bladder movements. No blood in the stools, no blood in the urine. Appetite is okay. Denies any shortness of breath or chest pain on exertion. Denies rash or swelling of legs ALLERGIES: DIPHENHYDRAMINE. PAST MEDICAL HISTORY: As mentioned above. PAST SURGICAL HISTORY: Tonsillectomy, adenoidectomy. MEDICATIONS: The patient is on Lipitor 10 mg p.o. daily, Coreg 12.5 mg p.o. b.i.d. mirtazapine 30 mg p.o. at bedtime. FAMILY HISTORY: Significant for father had diabetes, hypertension and neurological disorder. Paternal grandmother has asthma. SOCIAL HISTORY: . No smoking history. No alcohol history. No drug history. REVIEW OF SYMPTOMS: As per HPI. Rest of review of systems negative. Physical Exam (per Admitting): PHYSICAL EXAMINATION: GENERAL: The patient is obese, not in distress. VITAL SIGNS: Temperature 36.4, pulse 73, respiratory rate 23, blood pressure 158/92, oxygen 94% on room air. HEENT: No pallor, no icterus. Pupils equal, round, and reactive to light. NECK: No JVD, no neck masses, no carotid bruits. CARDIOVASCULAR: S1, S2 heard, regular rate and rhythm, no murmur, no gallop. RESPIRATORY SYSTEM: Normal AP diameter. No accessory muscle use. No wheezing, no crackles. ABDOMEN: Soft, bowel sounds present. Nontender. No distention. CENTRAL NERVOUS SYSTEM: Cranial nerves are grossly intact. Nonfocal. EXTREMITIES: Trace pedal edema present. No erythema seen. Hospital Course 62 year old M with history of anxiety who presented to the hospital for chest congestion/pain Point of Care Troponin 0.140 elevated however 2 subsequent troponin I were negative WBC 15,000 and patient initially received oral Levofloxacin for possible pulmonary or airway disease but normal chest X ray: "The lungs are clear. Cardiac silhouette is normal in size. No pleural effusions. No pneumothorax." Patient afebrile. 07/12/17 A complete two-dimensional transthoracic echocardiogram was performed (2D, M- mode, Doppler and color flow Doppler) with Definity ultrasound contrast Left Ventricle * The left ventricle is normal in size. * There is normal left ventricular wall thickness. * Left ventricular systolic function is normal. * Ejection Fraction = 55-60%. * The left ventricular wall motion is normal. Right Ventricle * The right ventricle is normal size. * The right ventricular systolic function is normal. Atria * The left atrial size is normal. * Right atrial size is normal. * The interatrial septum is intact with no evidence for an atrial septal defect. Mitral Valve * The mitral valve anatomy is normal. * Significant mitral regurgitation is absent. Tricuspid Valve * The tricuspid valve anatomy is normal. * Significant tricuspid regurgitation is absent. Aortic Valve * The aortic valve is tricuspid. The leaflet thickness if normal. There is no aortic stenosis, and no significant insufficiency. * No hemodynamically significant valvular aortic stenosis. * There is no significant aortic regurgitation. Pulmonic Valve * The pulmonic valve is not well visualized. Great Vessels * The aortic root and proximal ascending aorta are normal sized. Pericardium/Pleural * There is no pericardial effusion. 07/12/17 STRESS STUDY: Normal exercise stress echocardiogram. No echocardiographic or ECG evidence of myocardial ischemia having achieved heart rate adequate for diagnostic purposes. Carotid Ultrasound 07/12/17 IMPRESSION: Atheromatous changes. Mild elevation of the peak systolic velocity of the right internal carotid artery with a normal ICA/CCA peak systolic ratio. The findings are indicative of a less than 50% stenosis. Diagnosis: Atypical Chest pain (Cardiac workup did not find evidence to support coronary artery disease myocardial ischemia), Hypertension (continue Carvedilol BID and add amlodipine 5 mg daily), Anxiety, Leukocytosis without evidence of infection DISPOSITION discharge home with follow up to his primary care doctor. Dr. Valencia. The [facility] appointment line [phone] to help make the appointment. Patient is to receive appointment date from 's office or patient can call [phone] Patient may benefit from pulmonary function testing as outpatient as per cardiology evaluation when inpatient. This can be arranged by the primary care doctor. Total time spent on discharge = 40 minutes This includes examination of the patient, discharge planning, medication reconciliation, and communication with other providers. Discharge Instructions DISPOSITION discharge home with follow up to his primary care doctor. Dr. Valencia. The [facility] appointment line [phone] to help make the appointment. Patient is to receive appointment date from 's office or patient can call [phone] Patient may benefit from pulmonary function testing as outpatient as per cardiology evaluation when inpatient. This can be arranged by the primary care doctor.
[2017-07-12 15:48] VITALS: BP 162/81; PULSE 68; TEMP 36.5; O2SAT 93
[2017-07-12] MEDS ORDERED: MIRTAZAPINE TAB 15 MG TAB PO SCH (21:00)
[2017-07-13] MEDS ORDERED: AMLODIPINE BESYLATE 5 MG TAB PO SCH (09:00)
== END 2017-07-12 15:45 | disposition home or self-care (01) ==
LOC: C.EDB 20:47 → C.2T 07-12 00:08 → ENRESERV 07-12 00:33
PROVIDERS: ADMIT Internal Medicine; ATTEND Hospitalist
DX: R07.89 Other chest pain (principal); I10 Essential (primary) hypertension; E78.5 Hyperlipidemia, unspecified; D72.829 Elevated white blood cell count, unspecified; F41.1 Generalized anxiety disorder; Z79.82 Long term (current) use of aspirin; Z79.899 Other long term (current) drug therapy